=== PATIENT | male | born 1975 | race Two or more races ===

== ENCOUNTER 2017-09-17 22:00 | Emergency (ER) | payer OTHER ==
[~2017-09-17] VITALS: Ht 177.8 cm; Wt 79.1 kg
[2017-09-18 00:02] VITALS: BP 155/84
== END 2017-09-17 23:20 | disposition home or self-care (01) ==
LOC: FSED 22:00
DX: R10.32 Left lower quadrant pain (principal); R11.0 Nausea; F17.210 Nicotine dependence, cigarettes, uncomplicated